=== PATIENT | female | born 1955 | race American Indian/Alaskan Native ===

== ENCOUNTER 2016-07-03 21:36 | Emergency (ER) | payer MEDICAID ==
[2016-07-03] MEDS ORDERED: DILAUDID IM ONE (22:25)
--- NOTE | 2016-07-03 22:26 | Emergency Department Report ---
ED General Adult HPI - General Chief complaint: Upper Respiratory Infection Stated complaint: SPITTING UP BLOOD Time Seen by Provider: 07/03/16 22:06 Source: patient, EMS (ems notes not available at time of chart dictation), RN notes reviewed, old records reviewed Mode of arrival: Stretcher Limitations: No Limitations - History of Present Illness Initial comments: This is a 61-year-old female. She has previously unknown to me. Past medical history includes CHF, heart disease, hypertension, diabetes, hypothyroidism, bipolar, fibromyalgia. Primary care Dr.: Candelario Dolan Cardiology: Mervat Patient had a negative nuclear stress test March 2015, ejection fraction suggested that greater than 65%. The patient is brought to the hospital by EMS complaining of coughing up blood. Patient reports that she was outside, got exposed to pollen, began cough quite violently. She reports that prior to going outside, there is no chest pain, no shortness of breath, no coughing, no coughing up of blood. There is no hematemesis. The patient reports chronic dark stools secondary to being on iron supplementation. The patient also complains of left flank pain which started after she began to cough. There is chronic lower extremity swelling, which is not new, worsening or different. Patient also admits to chronic bruising which is not new, worsening or different. -: Sudden Severity scale (0 -10): 7 Quality: stabbing Consistency: intermittent Improves with: rest Worsens with: movement Associated Symptoms: cough - Related Data Home Medications Medication Instructions Recorded Confirmed Last Taken Losartan [Cozaar] 50 mg PO QDAY 11/26/12 03/16/16 04/01/15 Sertraline HCl 100 mg PO QDAY 11/26/12 03/16/16 04/02/15 amLODIPine [Norvasc] 10 mg PO DAILY 11/26/12 03/16/16 04/01/15 ALBUTEROL Inhaler [ProAir HFA 2 puff IH DAILY PRN 05/31/13 03/16/16 08/14/14 Inhaler] 2 PUFF Levothyroxine [Synthroid] 100 mcg PO QAM 03/11/14 03/16/16 04/02/15 Furosemide [Lasix TAB] 40 mg PO QDAY 04/02/15 03/16/16 04/01/15 EPINEPHrine (NF) [Epipen (Nf)] 0.3 mg IM PRN PRN 07/04/15 03/16/16 Unknown Diazepam 5 mg PO Q12HR 10/07/15 03/16/16 Unknown Ferrous Sulfate [Feosol 325 MG tab] 1 tab PO DAILY 10/07/15 03/16/16 Unknown Omeprazole [PriLOSEC] 40 mg PO QDAY 10/07/15 03/16/16 Unknown Ondansetron [Zofran TAB] 4 mg PO DAILY 10/07/15 03/16/16 Unknown Oxycodone HCl/Acetaminophen 1 each PO Q6HR PRN 03/17/16 03/17/16 Unknown [Percocet 10/325 mg] Previous Rx's Medication Instructions Recorded Last Taken Type Docusate Sodium [Colace] 100 mg PO BID PRN #30 capsule 01/02/16 Unknown Rx Cyclobenzaprine HCl [Flexeril 5 MG 5 mg PO Q8HR PRN #10 tab 05/05/16 Unknown Rx TAB] Allergies Allergy/AdvReac Type Severity Reaction Status Date / Time acetaminophen [From Tylenol] Allergy Itching Verified 07/04/16 11:44 Iodinated Contrast Media - Allergy Shortness Verified 05/05/16 13:14 IV Dye of Breath iodine Allergy Shortness Verified 05/05/16 13:14 of Breath latex Allergy Shortness Verified 05/05/16 13:14 of Breath morphine Allergy Hives Verified 05/05/16 13:14 Penicillins Allergy Hives Verified 05/05/16 13:14 prednisone Allergy Swelling Verified 07/04/16 11:44 shellfish derived Allergy Vomiting Verified 05/05/16 13:14 ED Review of Systems ROS: Stated complaint: SPITTING UP BLOOD Other details as noted in HPI Constitutional: denies: fever Eyes: denies: eye discharge Respiratory: cough Cardiovascular: denies: syncope Gastrointestinal: as per HPI Genitourinary: as per HPI Musculoskeletal: back pain Skin: as per HPI, lesions Neurological: weakness (chronic) Psychiatric: anxiety ED Past Medical Hx - Past Medical History Previous Medical History?: Yes Hx Hypertension: Yes Hx CVA: Yes (multiple TIA's) Hx Heart Attack/AMI: Yes Hx Congestive Heart Failure: Yes Hx Diabetes: Yes (2000) Hx GERD: Yes Hx Liver Disease: Yes (Previous hep c) Hx Arthritis: Yes (generalized) Hx Seizures: Yes Hx Asthma: Yes Additional medical history: thyroid. osteoporosis, bipolar. phlebitis. neuropathy. pericarditis - Surgical History Past Surgical History?: Yes Hx Coronary Stent: Yes Hx Breast Surgery: Yes (TUMOR REMOVED RIGHT BREAST) Additional Surgical History: tonsills removed, tubal ligation, gastric bypass in 2004, bilteral ankel cut down in 1977, double knee replacements. Gastric bypass revision in 12/2012. - Social History Smoking Status: Never Smoker Substance Use Type: None - Medications Home Medications: Home Medications Medication Instructions Recorded Confirmed Last Taken Type Losartan [Cozaar] 50 mg PO QDAY 11/26/12 03/16/16 04/01/15 History Sertraline HCl 100 mg PO QDAY 11/26/12 03/16/16 04/02/15 History amLODIPine [Norvasc] 10 mg PO DAILY 11/26/12 03/16/16 04/01/15 History ALBUTEROL Inhaler [ProAir HFA 2 puff IH DAILY PRN 05/31/13 03/16/16 08/14/14 History Inhaler] 2 PUFF Levothyroxine [Synthroid] 100 mcg PO QAM 03/11/14 03/16/16 04/02/15 History Furosemide [Lasix TAB] 40 mg PO QDAY 04/02/15 03/16/16 04/01/15 History EPINEPHrine (NF) [Epipen (Nf)] 0.3 mg IM PRN PRN 07/04/15 03/16/16 Unknown History Diazepam 5 mg PO Q12HR 10/07/15 03/16/16 Unknown History Ferrous Sulfate [Feosol 325 MG tab] 1 tab PO DAILY 10/07/15 03/16/16 Unknown History Omeprazole [PriLOSEC] 40 mg PO QDAY 10/07/15 03/16/16 Unknown History Ondansetron [Zofran TAB] 4 mg PO DAILY 10/07/15 03/16/16 Unknown History Docusate Sodium [Colace] 100 mg PO BID PRN #30 capsule 01/02/16 03/16/16 Unknown Rx Oxycodone HCl/Acetaminophen 1 each PO Q6HR PRN 03/17/16 03/17/16 Unknown History [Percocet 10/325 mg] Cyclobenzaprine HCl [Flexeril 5 MG 5 mg PO Q8HR PRN #10 tab 05/05/16 Unknown Rx TAB] ED Physical Exam - General Limitations: No Limitations General appearance: alert, in no apparent distress - Head Head exam: Present: atraumatic, normocephalic - Eye Eye exam: Present: normal appearance, EOMI. Absent: nystagmus - ENT ENT exam: Present: normal exam, normal orophraynx, mucous membranes moist, normal external ear exam - Neck Neck exam: Present: normal inspection, full ROM - Respiratory Respiratory exam: Present: normal lung sounds bilaterally, chest wall tenderness. Absent: respiratory distress, wheezes, rales, rhonchi, stridor - Cardiovascular Cardiovascular Exam: Present: regular rate, normal rhythm, normal heart sounds. Absent: bradycardia, tachycardia, irregular rhythm, systolic murmur, diastolic murmur, rubs, gallop - GI/Abdominal GI/Abdominal exam: Present: soft, normal bowel sounds. Absent: distended, tenderness, guarding, rebound, rigid, pulsatile mass - Rectal Rectal exam: Present: normal inspection, normal rectal tone, heme (-) stool, other (during rectal examination, I am escorted byAllyn Trejo) - Extremities Exam Extremities exam: Present: normal inspection, full ROM, normal capillary refill , pedal edema. Absent: calf tenderness - Back Exam Back exam: Present: normal inspection, full ROM, other (the compartments are soft. The pelvis is stable. There is no long bony tenderness or step-offs.). Absent: tenderness, CVA tenderness (R), CVA tenderness (L), muscle spasm, paraspinal tenderness, vertebral tenderness - Neurological Exam Neurological exam: Present: alert, oriented X3, other (Extraocular movements intact. Tongue midline. No facial droop. Facial sensation intact to light touch in the V1, V2, V3 distribution bilaterally. 5 and 5 strength in 4 extremities.. Sensation is intact to light touch in 4 extremities.). Absent: motor sensory deficit - Psychiatric Psychiatric exam: Present: normal affect, normal mood - Skin Skin exam: Present: warm, dry, intact, normal color, ecchymosis (multiple bruises and ecchymosis noted in the lower extremities in various stages of healing.). Absent: rash ED Course Vital Signs 07/03/16 07/03/16 07/04/16 21:57 22:04 00:18 Temperature 97.9 F Pulse Rate 85 85 84 Respiratory 18 18 18 Rate Blood Pressure 144/82 Blood Pressure 144/82 147/84 138/86 [Left] O2 Sat by Pulse 98 99 99 Oximetry - Reevaluation(s) Reevaluation #1: 07/03/16 22:56 differential diagnosis: Bronchitis, pneumonitis, pneumonia, allergy, Olga-Sepulveda tear, rectal bleed, anemia, seasonal allergies Assessment and plan: 61-year-old female with report of coughing up blood after being exposed to pollen. She is afebrile with reassuring vital signs. She has reproducible left-sided flank pain which started after she began to cough. She reports she can tolerate hydromorphone for pain. We will obtain x-ray of the chest, basic laboratory studies, and CT scan of the chest to exclude occult disease. Given that all of her symptoms started after being exposed to pollen, and that she was not having any chest pain or shortness of breath before any of these events, I don't believe patient requires evaluation for acute coronary syndrome or pulmonary embolus at this time. Reevaluation #2: 07/03/16 23:57 laboratory studies were reviewed and are unremarkable. Laboratory studies unremarkable. Patient's hemoglobin and hematocrit appear to be acceptable. No obvious episodes of coughing or vomiting blood. I go back to reevaluate the patient, and she is noted to be playing and texting on her cell phone in no distress. Based on her history and physical, and does not appear to be any emergent condition at this time. The patient will be discharged with instructions to follow-up with her outpatient primary care doctor and she is referred to outpatient pulmonology. ED Medical Decision Making - Lab Data Result diagrams: 07/03/16 22:12 07/03/16 22:12 Vital Signs 07/03/16 07/03/16 21:57 22:04 Temperature 97.9 F Pulse Rate 85 85 Respiratory 18 18 Rate Blood Pressure 144/82 Blood Pressure 144/82 147/84 [Left] O2 Sat by Pulse 98 99 Oximetry Vital Signs 07/03/16 07/03/16 21:57 22:04 Temperature 97.9 F Pulse Rate 85 85 Respiratory 18 18 Rate Blood Pressure 144/82 Blood Pressure 144/82 147/84 [Left] O2 Sat by Pulse 98 99 Oximetry Lab Results 07/03/16 07/03/16 07/03/16 Range/Units 22:12 22:12 22:19 WBC 8.2 (4.5-11.0) K/mm3 RBC 5.12 H (3.65-5.03) M/mm3 Hgb 10.2 (10.1-14.3) gm/dl Hct 34.0 (30.3-42.9) % MCV 66 L (79-97) fl MCH 20 L (28-32) pg MCHC 30 (30-34) % RDW 21.0 H (13.2-15.2) % Plt Count 597 H (140-440) K/mm3 Lymph % (Auto) 23.4 (13.4-35.0) % [place] % (Auto) 8.8 H (0.0-7.3) % Eos % (Auto) 3.0 (0.0-4.3) % Baso % (Auto) 1.1 (0.0-1.8) % Lymph # 1.9 (1.2-5.4) K/mm3 [place] # 0.7 (0.0-0.8) K/mm3 Eos # 0.2 (0.0-0.4) K/mm3 Baso # 0.1 (0.0-0.1) K/mm3 Seg Neutrophils % 63.7 (40.0-70.0) % Seg Neutrophils # 5.2 (1.8-7.7) K/mm3 PT 14.0 (12.2-14.9) Sec. INR 1.09 (0.87-1.13) Sodium 140 (137-145) mmol/L Potassium 4.0 (3.6-5.0) mmol/L Chloride 103.3 (98-107) mmol/L Carbon Dioxide 24 (22-30) mmol/L Anion Gap 17 mmol/L BUN 15 (7-17) mg/dL Creatinine 0.8 (0.7-1.2) mg/dL Estimated GFR > 60 ml/min BUN/Creatinine Ratio 18.75 % Glucose 74 (65-100) mg/dL Calcium 9.1 (8.4-10.2) mg/dL Total Bilirubin (0.1-1.2) mg/dL Direct Bilirubin (0-0.2) mg/dL Indirect Bilirubin mg/dL AST (5-40) units/L ALT (7-56) units/L Alkaline Phosphatase (35-129) units/L NT-Pro-B Natriuret Pep (0-900) pg/mL Total Protein (6.3-8.2) g/dL Albumin (3.9-5) g/dL Albumin/Globulin Ratio % 07/03/16 07/03/16 Range/Units 22:19 22:19 WBC (4.5-11.0) K/mm3 RBC (3.65-5.03) M/mm3 Hgb (10.1-14.3) gm/dl Hct (30.3-42.9) % MCV (79-97) fl MCH (28-32) pg MCHC (30-34) % RDW (13.2-15.2) % Plt Count (140-440) K/mm3 Lymph % (Auto) (13.4-35.0) % [place] % (Auto) (0.0-7.3) % Eos % (Auto) (0.0-4.3) % Baso % (Auto) (0.0-1.8) % Lymph # (1.2-5.4) K/mm3 [place] # (0.0-0.8) K/mm3 Eos # (0.0-0.4) K/mm3 Baso # (0.0-0.1) K/mm3 Seg Neutrophils % (40.0-70.0) % Seg Neutrophils # (1.8-7.7) K/mm3 PT (12.2-14.9) Sec. INR (0.87-1.13) Sodium (137-145) mmol/L Potassium (3.6-5.0) mmol/L Chloride (98-107) mmol/L Carbon Dioxide (22-30) mmol/L Anion Gap mmol/L BUN (7-17) mg/dL Creatinine (0.7-1.2) mg/dL Estimated GFR ml/min BUN/Creatinine Ratio % Glucose (65-100) mg/dL Calcium (8.4-10.2) mg/dL Total Bilirubin 0.2 (0.1-1.2) mg/dL Direct Bilirubin < 0.2 (0-0.2) mg/dL Indirect Bilirubin 0.0 mg/dL AST 16 (5-40) units/L ALT 11 (7-56) units/L Alkaline Phosphatase 76 (35-129) units/L NT-Pro-B Natriuret Pep 307.0 (0-900) pg/mL Total Protein 7.3 (6.3-8.2) g/dL Albumin 4.0 (3.9-5) g/dL Albumin/Globulin Ratio 1.2 % Lab Results 07/03/16 Range/Units 22:12 WBC 8.2 (4.5-11.0) K/mm3 RBC 5.12 H (3.65-5.03) M/mm3 Hgb 10.2 (10.1-14.3) gm/dl Hct 34.0 (30.3-42.9) % MCV 66 L (79-97) fl MCH 20 L (28-32) pg MCHC 30 (30-34) % RDW 21.0 H (13.2-15.2) % Plt Count 597 H (140-440) K/mm3 Lymph % (Auto) 23.4 (13.4-35.0) % [place] % (Auto) 8.8 H (0.0-7.3) % Eos % (Auto) 3.0 (0.0-4.3) % Baso % (Auto) 1.1 (0.0-1.8) % Lymph # 1.9 (1.2-5.4) K/mm3 [place] # 0.7 (0.0-0.8) K/mm3 Eos # 0.2 (0.0-0.4) K/mm3 Baso # 0.1 (0.0-0.1) K/mm3 Seg Neutrophils % 63.7 (40.0-70.0) % Seg Neutrophils # 5.2 (1.8-7.7) K/mm3 - Radiology Data Radiology results: report reviewed, image reviewed interpreted by me: X-ray of the chest demonstrates chronic changes, no acute disease. Noncontrast CT scan of the chest demonstrates no acute disease. No masses are noted. Critical care attestation.: If time is entered above; I have spent that time in minutes in the direct care of this critically ill patient, excluding procedure time. ED Disposition Clinical Impression: Hemoptysis Disposition: DISCHARGED TO HOME OR SELFCARE Is pt being admited?: No Does the pt Need Aspirin: No Condition: Stable Instructions: Acute Hemoptysis (ED) Additional Instructions: Continue current outpatient medications. Follow up with the primary care doctor or a agricultural systems specialist within the next 5-[address] Kennedy a local agricultural systems specialist. Return to the ER right away with vomiting blood, coughing blood, defecating blood, intractable nausea or vomiting, inability to tolerate liquid feeds. Referrals: PRIMARY CARE, [Primary Care Provider] - 3-5 Days JASKARAN KENNEDY MD [Staff Physician] - 3-5 Days
[2016-07-03 22:46] LABS: Basophils % (Auto) 1.1 % (0.0-1.8); Mean Corpuscular HGB Conc 30 % (30-34); Platelet Count 597 K/mm3 (140-440); Red Blood Count 5.12 M/mm3 (3.65-5.03); White Blood Count 8.2 K/mm3 (4.5-11.0)
[2016-07-03 22:54] LABS: Hemoglobin 10.2 gm/dl (10.1-14.3); Mean Corpuscular Hemoglobin 20 pg (28-32); Mean Corpuscular Volume 66 fl (79-97)
[2016-07-03 22:59] LABS: INR 1.09 (0.87-1.13)
[2016-07-03 23:01] LABS: Alanine Aminotransferase 11 units/L (7-56); Albumin/Globulin Ratio 1.2 %; Alkaline Phosphatase 76 units/L (35-129); Bilirubin,Total 0.2 mg/dL (0.1-1.2); Total Protein 7.3 g/dL (6.3-8.2)
[2016-07-03 23:02] LABS: Anion Gap 17 mmol/L; BUN/Creatinine Ratio 18.75; Blood Urea Nitrogen 15 mg/dL (7-17); Calcium 9.1 mg/dL (8.4-10.2); Carbon Dioxide 24 mmol/L (22-30); Chloride 103.3 mmol/L (98-107); Glucose 74 mg/dL (65-100); Sodium 140 mmol/L (137-145)
[2016-07-03 23:02] LABS: Bilirubin,Direct < 0.2 mg/dL (0-0.2)
--- NOTE | 2016-07-03 23:36 | Cat Scan Report ---
FINAL REPORT PROCEDURE: CT CHEST WO CON TECHNIQUE: Computerized axial tomography of the chest was performed without contrast material. This study is performed without intravenous contrast and the sensitivity for pathology, including neoplasms, adenopathy, abscess, pulmonary embolism and aortic dissection, is reduced. HISTORY: hemoptysis COMPARISON: 10/07/2015 TECHNICAL QUALITY: Satisfactory. FINDINGS: Heart and pericardium: Normal. Thoracic aorta: Normal. Pulmonary vasculature: Normal. Lymph nodes: No enlarged thoracic lymph nodes. Lungs: The lungs are clear and expanded. There are no infiltrates, effusions or pneumothoraces. There are no pulmonary nodules or masses. There are no endotracheal or endobronchial lesions.. Pleural space: No effusion, thickening, or pneumothorax. Musculoskeletal structures: No significant abnormality. Upper abdominal structures: No significant abnormality. There has been gastric bypass surgery. IMPRESSION: Normal heart and lungs..
[2016-07-04 00:18] VITALS: BP 138/86
--- NOTE | 2016-07-04 10:51 | XRay Report ---
AP chest x-ray. History: Hemoptysis. Findings: The heart and lungs reveal no acute findings or interval changes since February of 2016.
== END 2016-07-04 00:18 | disposition home or self-care (01) ==
LOC: ED 21:36
DX: R04.2 Hemoptysis (principal); I10 Essential (primary) hypertension; I63.9 Cerebral infarction, unspecified; I25.2 Old myocardial infarction; I50.9 Heart failure, unspecified; F31.9 Bipolar disorder, unspecified; J45.909 Unspecified asthma, uncomplicated; M19.90 Unspecified osteoarthritis, unspecified site; Z88.5 Allergy status to narcotic agent; Z88.0 Allergy status to penicillin; Z88.8 Allergy status to other drugs, medicaments and biological substances; Z91.041 Radiographic dye allergy status; Z91.013 Allergy to seafood
CPT/HCPCS: 36415; 71010; 71250; 80048; 80074; 83880; 85025; 85610; 96372; 99285; J1170

== ENCOUNTER 2016-07-04 11:02 | Emergency (ER) | payer MEDICAID ==
[2016-07-04 11:54] VITALS: BP 157/87
[2016-07-04 12:47] LABS: Eosinophils % (Auto) 3.2 % (0.0-4.3)
[2016-07-04 13:05] LABS: Hematocrit 36.8 % (30.3-42.9); Hemoglobin 10.9 gm/dl (10.1-14.3); Mean Corpuscular HGB Conc 30 % (30-34); Mean Corpuscular Hemoglobin 20 pg (28-32); Mean Corpuscular Volume 67 fl (79-97); Mean Platelet Volume 8.4 fl (6-12); Platelet Count 657 K/mm3 (140-440); Red Blood Count 5.53 M/mm3 (3.65-5.03); Red Cell Distribution Width 21.7 % (13.2-15.2); White Blood Count 7.7 K/mm3 (4.5-11.0)
[2016-07-04 13:06] LABS: Alanine Aminotransferase 11 units/L (7-56); Albumin 3.7 g/dL (3.9-5); Albumin/Globulin Ratio 0.9 %; Alkaline Phosphatase 81 units/L (35-129); Anion Gap 17 mmol/L; BUN/Creatinine Ratio 21.42; Bilirubin,Total 0.3 mg/dL (0.1-1.2); Blood Urea Nitrogen 15 mg/dL (7-17); Calcium 8.8 mg/dL (8.4-10.2); Carbon Dioxide 23 mmol/L (22-30); Chloride 103.9 mmol/L (98-107); Glucose 82 mg/dL (65-100); Lipase 17 units/L (13-60); Potassium 4.5 mmol/L (3.6-5.0); Sodium 139 mmol/L (137-145)
--- NOTE | 2016-07-05 14:40 | ED Elopement Review ---
ED Pt Elopement review - Results review Lab results: Laboratory Tests 07/04/16 07/04/16 12:28 12:28 WBC 7.7 RBC 5.53 H Hgb 10.9 Hct 36.8 MCV 67 L MCH 20 L MCHC 30 RDW 21.7 H Plt Count 657 H Lymph % (Auto) 17.6 [place] % (Auto) 7.0 Eos % (Auto) 3.2 Baso % (Auto) 1.0 Lymph # 1.4 [place] # 0.6 Eos # 0.3 Baso # 0.1 Seg Neutrophils % 70.7 H Seg Neutrophils # 5.6 Potassium 4.5 Chloride 103.9 Carbon Dioxide 23 Anion Gap 17 BUN 15 Creatinine 0.7 Estimated GFR > 60 BUN/Creatinine Ratio 21.42 Glucose 82 Calcium 8.8 Total Bilirubin 0.3 AST 21 ALT 11 Alkaline Phosphatase 81 Total Protein 8.0 Albumin 3.7 L Albumin/Globulin Ratio 0.9 Lipase 17 - Call Back decision Pt Call Back Decision: Call pt to return to ED SARITHA (hemoptysis should be further evaluated)
== END 2016-07-05 03:08 | disposition left against medical advice (07) ==
LOC: ED 11:02
DX: K92.0 Hematemesis (principal); Z53.21 Procedure and treatment not carried out due to patient leaving prior to being seen by health care provider
CPT/HCPCS: 36415; 80053; 83690; 85025